=== PATIENT | male | born 1985 | race American Indian/Alaskan Native ===

== ENCOUNTER 2016-11-01 11:25 | Emergency (ER) | payer SELFPAY ==
[2016-11-01 11:36] VITALS: BP 137/83
[2016-11-01] MEDS ORDERED: MOTRIN PO ONE (11:52)
--- NOTE | 2016-11-01 11:52 | Emergency Department Report ---
HPI - General Chief Complaint: Dental/Oral Time Seen by Provider: 11/01/16 11:46 - HPI HPI: Patient here reports dental pain. He complains of broken tooth to the right upper back times greater than 2 years. He is also complaining of pain to right upper back tooth 2 nights. He said he took [id number] ibuprofen, Aleve, Tylenol and Excedrin without any relief. He denies any fever or chills. Denies any trauma. Pain is 10 out of 10. Denies any facial swelling. said he does not have a dentist. ED Past Medical Hx - Past Medical History Previous Medical History?: No - Surgical History Past Surgical History?: No - Family History Family history: no significant - Social History Smoking Status: Current Every Day Smoker Substance Use Type: Marijuana - Medications Home Medications: Home Medications Medication Instructions Recorded Confirmed Last Taken Type Acetaminophen/Codeine [Tylenol #3] 1 tab PO Q6H PRN #20 tab 11/01/16 Unknown Rx Amoxicillin [Amoxicillin TAB] 875 mg PO BID #20 tablet 11/01/16 Unknown Rx ED Review of Systems ROS: Stated complaint: RT SIDE FACE PAIN Other details as noted in HPI Comment: All other systems reviewed and negative Constitutional: denies: chills, fever ENT: dental pain. denies: ear pain, throat pain, congestion Respiratory: no symptoms reported Cardiovascular: denies: chest pain, palpitations, edema, syncope Gastrointestinal: denies: nausea, vomiting Musculoskeletal: denies: back pain, arthralgia Neurological: denies: headache Physical Exam - Physical Exam Vital Signs: Vital Signs 11/01/16 11:32 Temperature 98.9 F Pulse Rate 92 H Respiratory 17 Rate Blood Pressure 137/83 O2 Sat by Pulse 100 Oximetry General: This is a 31-year-old male well-nourished well-developed in no acute distress. Physical Exam: Head: Normocephalic atraumatic Mouth: Moist, no pharyngeal exudate or erythema. Uvula is midline and oral airway is patent. No gingival enlargement or dental tenderness. No facial swelling. No peritonsillar abscesses. Tooth #1 and 2 with fracture without any pulp exposure. Noted patient with dental caries that is not widespread. Tenderness around tooth #1 and 2. No cellulitis or induration noted. Neck: Supple, no C-spine tenderness, no tracheal deviation. Nontender to palpate. no adenopathy Ears: Bilateral TMs pearly cope .bilateral EAC without any redness swelling or drainage Eyes: Bilateral pupilsNl Mucosa. maxillary and frontal sinus non-tender to palpate. Lungs: clear to auscultate bilaterally no rhonchi wheezes or rales. Normal work of breathing extremity; No CCE. +2 pulses. No neurovascular compromise Cardiovascular: S1-S2, regular rate rhythm. No murmurs. Skin: clean Dry and intact no rash no lesions Psych: Normal mood and behavior ED Course Vital Signs 11/01/16 11:32 Temperature 98.9 F Pulse Rate 92 H Respiratory 17 Rate Blood Pressure 137/83 O2 Sat by Pulse 100 Oximetry - Reevaluation(s) Reevaluation #1: 11/01/16 12:48 Patient given Motrin 800 mg in emergency room for toothache. ED Medical Decision Making - Medical Decision Making ED course: I instructed patient that he has to right upper tooth that is fractured and also has some dental decay and he will need to follow-up with his dentist or dentists that he was referred to for further follow-up and treatment. I discussed with him is very important that he follow up with dentist as he can develop abscesses. I discussed treatment plan and diagnosis and he voiced understanding. He was given Motrin 800 mg in emergency room for tooth pain. Discharged home with prescription for Tylenol 3 and amoxicillin. Critical care attestation.: If time is entered above; I have spent that time in minutes in the direct care of this critically ill patient, excluding procedure time. ED Disposition Clinical Impression: Dental caries, Toothache Tooth fractures Qualifiers: Encounter type: initial encounter Fracture type: closed Qualified Code(s): S02.5XXA - Fracture of tooth (traumatic), initial encounter for closed fracture Disposition: DISCHARGED TO HOME OR SELFCARE Is pt being admited?: No Does the pt Need Aspirin: No Condition: Stable Instructions: Dental Caries (ED), Toothache (ED) Additional Instructions: Please follow up with dentist that you were referred to in discharge instruction paperwork for further management of fractured tooth and dental caries. take antibiotic as prescribed. Your prescribed Tylenol 3, he is do not drive or operate heavy machinery while taking this medication as it will cause drowsiness. Prescriptions: Acetaminophen/Codeine [Tylenol #3] 1 tab PO Q6H PRN #20 tab PRN Reason: Toothache Amoxicillin [Amoxicillin TAB] 875 mg PO BID #20 tablet Referrals: PRIMARY CARE, [Primary Care Provider] - 3-5 Days Forms: Work/School Release Form(ED)
== END 2016-11-01 12:55 | disposition home or self-care (01) ==
LOC: ED 11:25
DX: S02.5XXA Fracture of tooth (traumatic), initial encounter for closed fracture (principal); K08.89 Other specified disorders of teeth and supporting structures; K02.9 Dental caries, unspecified; F17.200 Nicotine dependence, unspecified, uncomplicated; F12.90 Cannabis use, unspecified, uncomplicated; X58.XXXA Exposure to other specified factors, initial encounter; Y93.9 Activity, unspecified; Y99.9 Unspecified external cause status; Y92.9 Unspecified place or not applicable
CPT/HCPCS: 99282

== ENCOUNTER 2017-06-14 19:36 | Emergency (ER) | payer SELFPAY ==
[2017-06-14 20:33] VITALS: BP 129/85
--- NOTE | 2017-06-14 21:40 | XRay Report ---
FINAL REPORT EXAM: XR FOOT 2V RT HISTORY: Pain COMPARISON: None available. FINDINGS: Two views of right foot obtained. Bony structures are intact. Joint spaces are preserved. No acute fracture dislocation. IMPRESSION: No acute bony abnormality.
== END 2017-06-14 23:15 | disposition left against medical advice (07) ==
LOC: ED 19:36
DX: M79.671 Pain in right foot (principal); Z53.21 Procedure and treatment not carried out due to patient leaving prior to being seen by health care provider
CPT/HCPCS: 82962

== ENCOUNTER 2022-05-20 17:25 | Emergency (ER) | payer SELFPAY | END 2022-05-21 18:01 | disposition left against medical advice (07) | LOC: ED 17:25 | DX: Z53.21 Procedure and treatment not carried out due to patient leaving prior to being seen by health care provider (principal); J11.1 Influenza due to unidentified influenza virus with other respiratory manifestations ==